=== PATIENT | male | born 1970 | race Caucasian/White ===

== ENCOUNTER 2017-05-14 16:48 | Emergency (ER) | payer BC, SELFPAY ==
[2017-05-14 17:01] VITALS: BP 145/78; PULSE 82; RESP 20; TEMP 36.7; O2SAT 100; BMI 28.7
--- NOTE | 2017-05-14 17:10 | XR_ITS ---
XR chest 2V HISTORY: ITS.REASON: PAIN WITH BREATHING SINCE MONDAY ORDERING PHYSICIAN: Kenyetta Laboy MD PATIENT AGE: 47 years COMPARISON: 03/12/2016 FINDINGS: Unremarkable cardiovascular structures. Chronic changes once again noted in the right upper lobe. No lobar consolidation or collapse. There is mild chronic coarsening of the bronchovascular markings. IMPRESSION: Chronic changes, no change with no acute finding.
--- NOTE | 2017-05-14 17:33 | [facility].EDSOB ---
ED Disposition Clinical Impression: RML pneumonia, Diabetes, HTN (hypertension), CAD (coronary artery disease), Strep pharyngitis Disposition: Home, Self-Care Condition on Discharge: Fair Instructions: DI for Diarrhea and Traveler's Diarrhea -- Adult, DI for Diarrhea and Traveler's Diarrhea -- Child, DI for Nausea -- Adult, DI for Nausea -- Child Additional Instructions: 1-she was given Phenergan 12-1/2 mg p.o. every 6 as needed to go. 2-he was given Zithromax Z-Eugenio prescription and Ceftin 500 mg p.o. twice daily for 10 days. 3-he was instructed for bowel rest for tonight. 4-he was instructed to start and Gatorade for 1-2 days 16 ounce every 4-6 hours. 5-he is to observe 4-5 urine output a day. 6-follow-up with Dr. Porter's office in the morning. 7-return to the ED if vomiting recurs , abdominal pain or feels dehydrated. Prescriptions: Promethazine HCl [Phenergan 12.5mg Supp Take Home Pack (4)] 12.5 eugenio RC Q6HP PRN #1 eugenio PRN Reason: Nausea Azithromycin [Zithromax 250mg tab] 250 mg PO DIRECTED #6 tab Ceftriaxone 1 gm [Rocephin 1gm ADV] 1 gm IV DAILY #10 vial.port cefUROXime axetil [Ceftin 250mg Tablet] 500 mg PO BID 10 Days #20 tab Referrals: J Carlos Porter MD [Primary Care Provider] - - Critical Care Critical Care Time: No Attestation: On , the high probability of a clinically significant, sudden or life threatening deterioration of the following system(s) required my full and direct attention, intervention and personal management. The time I documented below is in addition to time spent performing reported procedures but includes the following listed in this critical care notation. Medical Decision Making - Medical Records Medical records reviewed: Yes: I reviewed the patient's medical records. - German Inquiry Pt receiving controlled substance: No German was queried for this patient: No Vital Signs: 05/14/17 17:01 Temperature 98.1 F Temperature Source Oral Pulse Rate [Right Brachial] 82 Respiratory Rate 20 Blood Pressure [Right Arm] 145/78 Blood Pressure Mean [Right Arm] 100 Blood Pressure Source [Right Arm] Automatic Cuff Blood Pressure Position [Right Arm] Sitting 02 Sat by Pulse Oximetry 100 Oxygen Delivery Method Room Air - Lab Data Lab Results 05/14/17 17:00: Influenza Type A Ag Negative, Influenza Type B Ag Negative 05/14/17 17:14: Group A Strep Rapid Positive A 05/14/17 17:55: WBC 5.9, RBC 4.63, Hgb 14.7, Hct 46.5, MCV 100.5 H, MCH 31.7 H, MCHC 31.6 L, RDW 14.6, Plt Count 115 L, MPV 8.5, Neut % (Auto) 74.8, Lymph % (Auto) 19.1, [place] % (Auto) 5.5, Eos % (Auto) 0.3, Baso % (Auto) 0.3, Neut # (Auto) 4.4, Lymph # (Auto) 1.1, [place] # (Auto) 0.3, Eos # (Auto) 0.0, Baso # (Auto) 0.0 05/14/17 17:55: Sodium 135 L, Potassium 4.5, Chloride 98, Carbon Dioxide 31, Anion Gap 10.5, BUN 14, Creatinine 0.99, Estimated Creat Clear 121, Estimated GFR 82, Est GFR ( Amer) 99, Glucose 118 H, Calcium 9.4, Total Bilirubin 0.5, AST 34, ALT 29, Alkaline Phosphatase 96, Total Creatine Kinase 69, CK-MB (CK-2) < 0.5, CK-MB (CK-2) Rel Index 0.7, Troponin I < 0.02, Total Protein 9.0 H, Albumin 3.9, Globulin 5.1 H, Albumin/Globulin Ratio 0.8 L 05/14/17 17:55: Lactic Acid 1.6 Result diagrams: 05/14/17 17:55 05/14/17 17:55 Orders (Tests/Meds): ED MEDICATIONS Generic Name Dose Route Start Last Admin Trade Name Freq PRN Reason Stop Dose Admin Azithromycin 500 mg/ Sodium 250 mls @ 250 mls/hr 05/14/17 17:45 05/14/17 17:54 Chloride IV 05/28/17 17:44 250 mls/hr Q24H LORENZA Administration Protocol Ceftriaxone Sodium 1 gm/ 50 mls @ 100 mls/hr 05/14/17 17:45 05/14/17 18:44 Sodium Chloride IV 05/28/17 17:44 100 mls/hr Q24H LORENZA Administration Protocol Discontinued Medications Generic Name Dose Route Start Last Admin Trade Name Freq PRN Reason Stop Dose Admin Sodium Chloride 1,000 mls @ 999 mls/hr 05/14/17 18:30 05/14/17 18:43 Sod Chlor 0.9% 100
--- NOTE | 2017-05-14 17:37 | ED_ITS ---
ED Disposition Clinical Impression: RML pneumonia, Diabetes, HTN (hypertension), CAD (coronary artery disease), Strep pharyngitis Disposition: Home, Self-Care Condition on Discharge: Fair Instructions: DI for Diarrhea and Traveler's Diarrhea -- Adult, DI for Diarrhea and Traveler's Diarrhea -- Child, DI for Nausea -- Adult, DI for Nausea -- Child Additional Instructions: 1-she was given Phenergan 12-1/2 mg p.o. every 6 as needed to go. 2-he was given Zithromax Z-Eugenio prescription and Ceftin 500 mg p.o. twice daily for 10 days. 3-he was instructed for bowel rest for tonight. 4-he was instructed to start and Gatorade for 1-2 days 16 ounce every 4-6 hours. 5-he is to observe 4-5 urine output a day. 6-follow-up with Dr. Porter's office in the morning. 7-return to the ED if vomiting recurs , abdominal pain or feels dehydrated. Prescriptions: Promethazine HCl [Phenergan 12.5mg Supp Take Home Pack (4)] 12.5 eugenio RC Q6HP PRN #1 eugenio PRN Reason: Nausea Azithromycin [Zithromax 250mg tab] 250 mg PO DIRECTED #6 tab Ceftriaxone 1 gm [Rocephin 1gm ADV] 1 gm IV DAILY #10 vial.port cefUROXime axetil [Ceftin 250mg Tablet] 500 mg PO BID 10 Days #20 tab Referrals: J Carlos Porter MD [Primary Care Provider] - - Critical Care Critical Care Time: No Attestation: On , the high probability of a clinically significant, sudden or life threatening deterioration of the following system(s) required my full and direct attention, intervention and personal management. The time I documented below is in addition to time spent performing reported procedures but includes the following listed in this critical care notation. Medical Decision Making - Medical Records Medical records reviewed: Yes: I reviewed the patient's medical records. - German Inquiry Pt receiving controlled substance: No German was queried for this patient: No Vital Signs: 05/14/17 17:01 Temperature 98.1 F Temperature Source Oral Pulse Rate [Right Brachial] 82 Respiratory Rate 20 Blood Pressure [Right Arm] 145/78 Blood Pressure Mean [Right Arm] 100 Blood Pressure Source [Right Arm] Automatic Cuff Blood Pressure Position [Right Arm] Sitting 02 Sat by Pulse Oximetry 100 Oxygen Delivery Method Room Air - Lab Data Lab Results 05/14/17 17:00: Influenza Type A Ag Negative, Influenza Type B Ag Negative 05/14/17 17:14: Group A Strep Rapid Positive A 05/14/17 17:55: WBC 5.9, RBC 4.63, Hgb 14.7, Hct 46.5, MCV 100.5 H, MCH 31.7 H, MCHC 31.6 L, RDW 14.6, Plt Count 115 L, MPV 8.5, Neut % (Auto) 74.8, Lymph % ( Auto) 19.1, [place] % (Auto) 5.5, Eos % (Auto) 0.3, Baso % (Auto) 0.3, Neut # (Auto ) 4.4, Lymph # (Auto) 1.1, [place] # (Auto) 0.3, Eos # (Auto) 0.0, Baso # (Auto) 0.0 05/14/17 17:55: Sodium 135 L, Potassium 4.5, Chloride 98, Carbon Dioxide 31, Anion Gap 10.5, BUN 14, Creatinine 0.99, Estimated Creat Clear 121, Estimated GFR 82, Est GFR ( Amer) 99, Glucose 118 H, Calcium 9.4, Total Bilirubin 0.5, AST 34, ALT 29, Alkaline Phosphatase 96, Total Creatine Kinase 69, CK-MB ( CK-2) < 0.5, CK-MB (CK-2) Rel Index 0.7, Troponin I < 0.02, Total Protein 9.0 H , Albumin 3.9, Globulin 5.1 H, Albumin/Globulin Ratio 0.8 L 05/14/17 17:55: Lactic Acid 1.6 Result diagrams: 05/14/17 17:55 05/14/17 17:55 Orders (Tests/Meds): ED MEDICATIONS Generic Name Dose Route Start Last Admin Trade Name Freq PRN Reason Stop Dose Admin Azithromycin 500 mg/ [place]od[place]
[2017-05-14 17:45] LABS: Strep Scrn Group A (Rapid) Positive (Negative)
[2017-05-14 18:17] LABS: Basophils % 0.3 % (0.1-2.0); Eosinophils % 0.3 % (0.1-12.0); Hematocrit 46.5 % (42.0-52.0); Hemoglobin 14.7 g/dL (14.1-18.0); Lymphocytes # 1.1 K/mm3 (0.7-4.5); Lymphocytes % 19.1 K/mm3 (10-50); Mean Corpuscular HGB Conc 31.6 g/dL (31.8-35.4); Mean Corpuscular Hemoglobin 31.7 pg (27.0-31.2); Mean Corpuscular Volume 100.5 fl (80-94); Mean Platelet Volume 8.5 fl (7.4-10.4); Monocytes # 0.3 K/mm3 (0.1-1.0); Monocytes % 5.5 % (1.7-9.3); Neutrophils # 4.4 K/mm3 (1.8-7.8); Neutrophils % 74.8 % (37.0-80.0); Platelet Count 115 K/mm3 (142-424); Red Blood Count 4.63 M/mm3 (4.60-6.20); Red Cell Distribution Width 14.6 % (11.5-17.5); White Blood Count 5.9 K/mm3 (4.8-10.8)
[2017-05-14 18:35] LABS: Lactic Acid 1.6 mmol/L (0.4-2.0)
[2017-05-14 18:46] LABS: Alanine Aminotransferase 29 U/L (12-78); Albumin Level 3.9 gm/dL (3.4-5.0); Albumin/Globulin Ratio 0.8 (1.1-1.8); Alkaline Phosphatase 96 U/L (46-116); Anion Gap 10.5 mEq/L (5-15); Aspartate Amino Transferase 34 U/L (15-37); Bilirubin,Total 0.5 mg/dL (0.2-1.0); Blood Urea Nitrogen 14 mg/dL (7-18); Calcium 9.4 mg/dL (8.5-10.1); Carbon Dioxide 31 mmol/L (21.0-32.0); Chloride 98 mmol/L (98-107); Creatine Kinase 69 U/L (39-308); Creatinine Clearance Estimated 121 mL/min (0-300); Creatinine,Serum 0.99 mg/dL (0.70-1.30); Estimated Glomerular Filt Rate 82 ml/min (>60); GFR (African American) 99 ML/MIN (>60); Globulin 5.1 gm/dl (1.3-3.2); Glucose 118 mg/dL (74-106); Potassium 4.5 mmoL/L (3.5-5.1); Sodium 135 mmol/L (136-145); Troponin I < 0.02 ng/ml (0.00-0.06)
[2017-05-14 18:47] LABS: CKMB Relative Index 0.7 U/L (0-4.0); Creatine Kinase MB < 0.5 ng/ml (0.0-3.6)
[2017-05-14 20:17] VITALS: BP 139/57; PULSE 89; RESP 16; TEMP 37.2; O2SAT 94
[2017-05-18 07:14] LABS: POC Glucose,Bedside 54 mg/dL (70-110)
== END 2017-05-14 20:18 | disposition home or self-care (01) ==
PROVIDERS: Emergency Provider Emergency Medicine; Family Provider Emergency Medicine; PCP Emergency Medicine
DX: J02.0 Streptococcal pharyngitis (principal); J18.9 Pneumonia, unspecified organism; I10 Essential (primary) hypertension; E11.9 Type 2 diabetes mellitus without complications
CPT/HCPCS: 71046; 80053; 82550; 82553; 82962; 83605; 84484; 85025; 87040; 87275; 87276; 87430; 96365; 96367; 96375; 99282; J0456; J0561

== ENCOUNTER → 2018-03-13 19:33 | Outpatient (CLI) | payer BC, SELFPAY ==
[2018-03-13 20:21] LABS: Basophils % 0.3 % (0.1-2.0); Eosinophils # 0.1 K/mm3 (0.0-0.4); Eosinophils % 0.7 % (0.1-12.0); Hematocrit 43.7 % (42.0-52.0); Hemoglobin 14.7 g/dL (14.1-18.0); Lymphocytes # 1.6 K/mm3 (0.7-4.5); Lymphocytes % 19.1 % (10-50); Mean Corpuscular HGB Conc 33.6 g/dL (31.8-35.4); Mean Corpuscular Hemoglobin 33.4 pg (27.0-31.2); Mean Corpuscular Volume 99.2 fl (80-94); Mean Platelet Volume 8.5 fl (7.4-10.4); Monocytes # 0.5 K/mm3 (0.1-1.0); Monocytes % 6.4 % (1.7-9.3); Neutrophils # 6.1 K/mm3 (1.8-7.8); Neutrophils % 73.5 % (37.0-80.0); Platelet Count 163 K/mm3 (142-424); Red Cell Distribution Width 14.2 % (11.5-17.5); White Blood Count 8.2 K/mm3 (4.8-10.8)
[2018-03-13 20:53] LABS: Hemoglobin A1C 5.7 % (0.0-7.0)
[2018-03-13 20:55] LABS: Alanine Aminotransferase 62 U/L (12-78); Albumin Level 4.1 gm/dL (3.4-5.0); Albumin/Globulin Ratio 1.3 (1.1-1.8); Alkaline Phosphatase 115 U/L (46-116); Anion Gap 14.2 mEq/L (5-15); Aspartate Amino Transferase 28 U/L (15-37); Bilirubin,Total 0.5 mg/dL (0.2-1.0); Blood Urea Nitrogen 16 mg/dL (7-18); Calcium 8.8 mg/dL (8.5-10.1); Carbon Dioxide 29 mmol/L (21.0-32.0); Chloride 103 mmol/L (98-107); Chol/HDL Ratio 3.1 (1-3.5); Cholesterol 144 mg/dL (140-200); Creatinine,Serum 1.25 mg/dL (0.70-1.30); Estimated Glomerular Filt Rate 62 ml/min (>60); Free T4 (Free Thyroxine) 0.98 ng/dl (0.76-1.46); GFR (African American) 76 ML/MIN (>60); Globulin 3.1 gm/dl (1.3-3.2); Glucose 102 mg/dL (74-106); HDL Cholesterol 47 mg/dL (27-67); LDL Cholesterol 82 mg/dL (0-130); Potassium 4.2 mmoL/L (3.5-5.1); Sodium 142 mmol/L (136-145); Thyroid Stimulating Hormone 1.14 uIU/ml (0.358-3.740); Total Protein,Serum 7.2 gm/dL (6.4-8.2); Triglycerides 77 mg/dL (30-200); VLDL Cholesterol 15 mg/dL (0-40)
== END ==
PROVIDERS: Visit Provider Emergency Medicine
DX: E11.9 Type 2 diabetes mellitus without complications (principal)
CPT/HCPCS: 80053; 80061; 82043; 82570; 83036; 84439; 84443; 85025